=== PATIENT | male | born 1990 | race American Indian/Alaskan Native ===

== ENCOUNTER 2017-08-12 08:48 | Emergency (ER) | payer BC ==
[2017-08-12 09:31] VITALS: BP 105/78
[2017-08-12 10:07] LABS: Basophils % (Auto) 0.2 % (0.0-1.8); Eosinophils % (Auto) 1.4 % (0.0-4.3); Hemoglobin 14.4 gm/dl (11.8-15.2); Mean Corpuscular HGB Conc 34 % (32-34); Mean Corpuscular Hemoglobin 30 pg (28-32); Mean Corpuscular Volume 86 fl (84-94); Platelet Count 185 K/mm3 (140-440); Red Blood Count 4.86 M/mm3 (3.65-5.03); Red Cell Distribution Width 13.1 % (13.2-15.2); White Blood Count 9.1 K/mm3 (4.5-11.0)
[2017-08-12 10:51] LABS: Chloride 99.1 mmol/L (98-107); Potassium 4.1 mmol/L (3.6-5.0); Sodium 133 mmol/L (137-145)
[2017-08-12 10:56] LABS: Bacteria,Urine 1+ /HPF (Negative); Bilirubin,Urine NEG (Negative); Blood,Urine NEG (Negative); Ketones,Urine NEG (Negative); Leukocyte Esterase,Urine NEG (Negative); Mucus,Urine FEW /HPF; Nitrite,Urine NEG (Negative); Urobilinogen,Urine < 2.0 mg/dL (<2.0)
[2017-08-12 11:19] LABS: Alanine Aminotransferase 15 units/L (7-56); Albumin 4.2 g/dL (3.9-5); Albumin/Globulin Ratio 1.4 %; Alkaline Phosphatase 50 units/L (35-129); Anion Gap 20 mmol/L; BUN/Creatinine Ratio 15.71; Blood Urea Nitrogen 11 mg/dL (9-20); Calcium 8.9 mg/dL (8.4-10.2); Carbon Dioxide 18 mmol/L (22-30); Glucose 120 mg/dL (75-100); Lipase 21 units/L (13-60); Total Protein 7.1 g/dL (6.3-8.2)
== END 2017-08-12 18:25 | disposition left against medical advice (07) ==
LOC: ED 08:48
DX: Z53.21 Procedure and treatment not carried out due to patient leaving prior to being seen by health care provider (principal)
CPT/HCPCS: 36415; 80053; 81001; 83690; 85025

== ENCOUNTER 2021-04-17 18:37 | Emergency (ER) | payer BC ==
[2021-04-17] MEDS ORDERED: SODIUM CHLORIDE 0.9% 1000 ML 1,000 ML IV ONE (19:56)
[2021-04-17] MEDS ORDERED: FAMOTIDINE 20 MG/2 ML INJ IV ONE (19:56)
[2021-04-17] MEDS ORDERED: ONDANSETRON 4 MG/2 ML INJ IV ONE (19:56)
[2021-04-17 20:04] LABS: Mean Corpuscular HGB Conc 36 % (32-34); Mean Corpuscular Volume 87 fl (84-94); Platelet Count 232 K/mm3 (140-440); Red Blood Count 5.26 M/mm3 (3.65-5.03)
[2021-04-17 20:08] LABS: Hematocrit 45.6 % (35.5-45.6); Hemoglobin 16.2 gm/dl (11.8-15.2)
[2021-04-17 20:18] LABS: Alanine Aminotransferase 14 units/L (7-56); Albumin 5.1 g/dL (3.9-5); BUN/Creatinine Ratio 14; Blood Urea Nitrogen 13 mg/dL (9-20); Calcium 9.4 mg/dL (8.4-10.2); Hemolysis Index 4
[2021-04-17 22:30] LABS: Band Neutrophils # (Manual) 0.3 K/mm3; Total Cells Counted 100
[2021-04-17 22:31] LABS: Anisocytosis 1+; Platelet Estimate Consistent w Auto
[2021-04-18 01:33] LABS: Bilirubin,Urine NEG (Negative); Blood,Urine NEG (Negative); Color,Urine Yellow (Yellow); Mucus,Urine 1+ /HPF; Protein,Urine <15 mg/dL mg/dL (Negative); RBC,Urine < 1.0 /HPF (0.0-6.0); Urobilinogen,Urine < 2.0 mg/dL (<2.0)
--- NOTE | 2021-04-18 02:01 | Emergency Department Report ---
ED N/V/D HPI - General Chief complaint: Abdominal Pain Stated complaint: FOOD POISONING/STOMACH VIRUS/MOTION SICKNESS Source: patient Mode of arrival: Ambulatory Limitations: No Limitations - History of Present Illness Initial comments: Patient is a 31-year-old -[place] male with no past medical history who presents to the ED with complaint of acute onset persistent intractable nausea and vomiting and diarrhea for over 12 hours. Patient states that the last meal he ate was almost 18 hours ago and it was at a fast food restaurant. Patient states that he has not been able to keep anything down because of intractable nausea and vomiting with diarrhea. Patient states that no one else at home is at similar symptoms. Patient denies fever, chills, dizziness, syncope, chest pain, abdominal pain, cough, sore throat, shortness of breath, dysuria, urinary frequency and urgency, testicular pain, back pain, headache or lightheadedness and hematuria. MD complaint: nausea, vomiting, diarrhea -: Sudden, hour(s) (12) Description of Vomiting: food contents, watery Description of Diarrhea: water Associated Abdominal Pain: No Location: diffuse Radiation: none Severity: severe Pain Scale: 7 Quality: dull Consistency: intermittent Improves with: none Worsens with: eating, vomiting Context: possible food poisoning Associated Symptoms: denies other symptoms, myalgias, loss of appetite, malaise, nausea/vomiting, weakness, other (DIARRHEA). denies: chest pain, cough, diaphoresis, fever/chills, headaches, rash, dysuria, shortness of breath, syncope - Related Data Previous Rx's Medication Instructions Recorded Last Taken Type Famotidine [Pepcid] 20 mg PO BID #30 tablet 04/18/21 Unknown Rx Ondansetron [Zofran Odt] 4 mg PO Q6HR PRN #20 tab.rapdis 04/18/21 Unknown Rx Allergies Allergy/AdvReac Type Severity Reaction Status Date / Time No Known Allergies Allergy Unverified 08/12/17 09:31 ED Review of Systems ROS: Stated complaint: FOOD POISONING/STOMACH VIRUS/MOTION SICKNESS Other details as noted in HPI Constitutional: malaise, weakness. denies: chills, fever Eyes: denies: eye pain, eye discharge, vision change ENT: denies: ear pain, throat pain Respiratory: denies: cough, shortness of breath, wheezing Cardiovascular: denies: chest pain, palpitations Endocrine: no symptoms reported Gastrointestinal: nausea, vomiting, diarrhea. denies: abdominal pain Genitourinary: denies: urgency, dysuria Musculoskeletal: denies: back pain, joint swelling, arthralgia Skin: denies: rash, lesions Neurological: denies: headache, weakness, paresthesias Psychiatric: denies: anxiety, depression Hematological/Lymphatic: denies: easy bleeding, easy bruising ED Past Medical Hx - Past Medical History Previous Medical History?: No - Surgical History Past Surgical History?: No - Social History Smoking Status: Current Every Day Smoker Substance Use Type: None - Medications Home Medications: Home Medications Medication Instructions Recorded Confirmed Last Taken Type Famotidine [Pepcid] 20 mg PO BID #30 tablet 04/18/21 Unknown Rx Ondansetron [Zofran Odt] 4 mg PO Q6HR PRN #20 tab.rapdis 04/18/21 Unknown Rx ED Physical Exam - General Limitations: No Limitations General appearance: alert, in no apparent distress - Head Head exam: Present: atraumatic, normocephalic, normal inspection - Eye Eye exam: Present: normal appearance, PERRL, EOMI Pupils: Present: normal accommodation - ENT ENT exam: Present: normal exam, normal orophraynx, mucous membranes moist, TM's normal bilaterally, normal external ear exam - Neck Neck exam: Present: normal inspection, full ROM - Respiratory Respiratory exam: Present: normal lung sounds bilaterally. Absent: respiratory distress, wheezes, rales, rhonchi, chest wall tenderness, accessory muscle use, decreased breath sounds, prolonged expiratory - Cardiovascular Cardiovascular Exam: Present: regular rate, normal rhythm, normal heart sounds. Absent: systolic murmur, diastolic murmur, rubs, gallop - GI/Abdominal GI/Abdominal exam: Present: soft, hyperactive bowel sounds. Absent: tenderness, guarding, rebound, rigid, normal bowel sounds, hypoactive bowel sounds, organomegaly, mass - Extremities Exam Extremities exam: Present: normal inspection, full ROM, normal capillary refill - Back Exam Back exam: Present: normal inspection, full ROM. Absent: tenderness, CVA tenderness (R), CVA tenderness (L), muscle spasm, paraspinal tenderness, vertebral tenderness - Neurological Exam Neurological exam: Present: alert, oriented X3, CN II-XII intact, normal gait, reflexes normal - Psychiatric Psychiatric exam: Present: normal affect, normal mood - Skin Skin exam: Present: warm, dry, intact, normal color. Absent: rash ED Course Vital Signs 04/17/21 19:32 Temperature 98.5 F Pulse Rate 82 Respiratory 18 Rate Blood Pressure 97/63 O2 Sat by Pulse 93 Oximetry ED Medical Decision Making - Lab Data Result diagrams: 04/17/21 19:42 04/17/21 19:42 - Medical Decision Making This is a 31-year-old -[place] male with no past medical history who presents to the ED with complaint of acute onset persistent intractable nausea and vomiting and diarrhea for over 12 hours. Patient states that the last meal he ate was almost 18 hours ago and it was at a fast food restaurant. Patient states that he has not been able to keep anything down because of intractable nausea and vomiting with diarrhea. Patient states that no one else at home is at similar symptoms. In the ED, patient is alert and oriented x3 and is not in any distress, patient is hemodynamically stable during the triage and throughout the ED course. Lab test results were reviewed and showed acute leukocytosis of 12,500 but the rest of the lab test results are nonactionable including urinalysis. Patient was treated in the ED with antiemetics, antacids and normal saline 1 L IV bolus x1. On reevaluation, patient passed oral fluid challenge in the ED and throughout the ED course of treatment, patient has not had any diarrhea or vomiting. Patient is hemodynamically stable, alert and oriented x3 and is not in any distress. Patient symptoms are likely due to a viral gastroenteritis from food poisoning although other differential diagnoses have been considered including dehydration, gallbladder disease, pancreatitis, urinary tract infection or GERD. Patient was therefore discharged home on medications and advised to maintain a clear liquid diet for 12 to 24 hours, and to take antiemetics and drink plenty of fluids. Patient was also advised to follow-up with his primary care physician in 5 to 7 days for reevaluation or return to the ED immediately if symptoms get worse. - Differential Diagnosis Viral gastroenteritis; dehydration; GERD; viral syndrome Critical care attestation.: If time is entered above; I have spent that time in minutes in the direct care of this critically ill patient, excluding procedure time. ED Disposition Clinical Impression: Nausea, vomiting and diarrhea, Viral gastroenteritis, Nonspecific syndrome sug gestive of viral illness Disposition: DC-01 TO HOME OR SELFCARE Is pt being admited?: No Does the pt Need Aspirin: No Condition: Stable Instructions: Nausea and Vomiting, Adult, [id number], Diarrhea, Adult, [id number], Viral Gastroenteritis, Adult, [id number] Additional Instructions: All lab test results were reviewed and are all nonactionable. Based on your history and physical exam findings as well as lab test results, your symptoms a re likely due to a viral syndrome characterized by gastroenteritis. Therefore maintain a clear liquid diet for 12-24 hrs., drink plenty of fluids, take medications as advised for nausea and vomiting and follow-up with your primary care physician in 3 to 5 days for reevaluation. Return to the ED immediately if symptoms get worse. Prescriptions: Famotidine [Pepcid] 20 mg PO BID #30 tablet Ondansetron [Zofran Odt] 4 mg PO Q6HR PRN #20 tab.rapdis PRN Reason: Nausea And Vomiting Referrals: [facility] [Provider Group] - 3-5 Days Forms: Work/School Release Form(ED) Time of Disposition: :02 Print Language: FAROESE
[2021-04-18 05:03] VITALS: BP 110/63
== END 2021-04-18 05:05 | disposition home or self-care (01) ==
LOC: ED 18:37
DX: A08.4 Viral intestinal infection, unspecified (principal); R19.7 Diarrhea, unspecified; R11.12 Projectile vomiting; F17.200 Nicotine dependence, unspecified, uncomplicated; Z79.899 Other long term (current) drug therapy
CPT/HCPCS: 36415; 80053; 81001; 83690; 85007; 85025; 96361; 96374; 96375; 99283; J2405; J7030